=== PATIENT | female | born 1990 | race Caucasian/White ===

== ENCOUNTER 2021-05-25 15:18 | Emergency (ER) | payer OTHER ==
[~2021-05-25] VITALS: Ht 162.6 cm; Wt 106.9 kg
[~2021-05-25 15:18] MED LIST: ANUS2.5C2 PR; DOCU5LIQ PO; IBUP80TA PO; MAPA500T17 PO; MILK10SU PO
[2021-05-25] MEDS ORDERED: ONDA4TAB6 PO (20:07)
[2021-05-25 20:56] VITALS: BP 129/78
== END 2021-05-25 20:53 | disposition home or self-care (01) ==
LOC: M ED 15:18
DX: O99.519 Diseases of the respiratory system complicating pregnancy, unspecified trimester (principal); B34.8 Other viral infections of unspecified site; Z3A.10 10 weeks gestation of pregnancy

== ENCOUNTER → 2021-06-03 | Outpatient (CLI) | payer OTHER ==
[~2021-06-03] MED LIST changes: +ONDA4TAB6 PO
[2021-06-03 15:46] LABS: HEMATOCRIT 40.2 % (36.0-47.0); MEAN CORPUSCULAR HGB CONC 32.3 g/dl (32.0-36.5); MEAN CORPUSCULAR VOLUME 86.5 fl (80.0-96.0); PLATELET COUNT, AUTOMATED 309 10^3/uL (150-450); RED BLOOD COUNT 4.65 10^6/uL (4.00-5.40); WHITE BLOOD COUNT 13.8 10^3/uL (4.0-10.0)
[2021-06-03 17:06] LABS: GC DNA AMPLIFICATION NEGATIVE (NEGATIVE)
[2021-06-03 17:35] LABS: HEPATITIS C VIRUS ABY INDEX 0.1 INDEX (<0.8); HIV 1&2 SCREEN CENTAUR NEGATIVE (NEGATIVE)
== END ==
LOC: M PLALAB 12:10
PROVIDERS: ATTEND Advanced Practice Midwife
DX: Z34.91 Encounter for supervision of normal pregnancy, unspecified, first trimester (principal); Z3A.00 Weeks of gestation of pregnancy not specified

== ENCOUNTER → 2021-06-16 | Outpatient (REF) | payer OTHER | LOC: M SFHCWAGY 17:14 | PROVIDERS: ATTEND Advanced Practice Midwife | DX: Z34.92 Encounter for supervision of normal pregnancy, unspecified, second trimester (principal) ==

== ENCOUNTER → 2021-07-24 | Outpatient (CLI) | payer OTHER ==
--- NOTE | 2021-07-24 12:32 | REP ---
INDICATION: ANATOMY. COMPARISON: None TECHNIQUE: Transabdominal scanning FINDINGS: Multiple ultrasonographic images of the gravid uterus shows a single living intrauterine gestation in the transverse position. Doppler interrogation of the heart shows a heart rate of 160 beats per minute. The placenta is anterior and not low-lying. The cervix measures 5.4 cm in length and is closed. The subjective amniotic fluid volume is within normal limits. BPD: 4.2 cm 18 weeks 5 days HC: 16.0 cm 18 weeks 6 days AC: 12.9 cm 18 weeks 3 days FL: 2.8 cm 18 weeks 4 days The estimated weight is 246 g which is at the 36 percentile for an 18 week 5 day gestational age. anatomical structures seen to be unremarkable are as follows: Thalami, cavum septum pellucidum, cerebellum, cisterna magna, cerebral ventricles, kidneys, stomach, cord insertion, three-vessel umbilical cord, four-chamber heart, and upper lower extremities. Structures suboptimally visualized are as follows: upper lip, ventricular outflow tracts, and spine. Additionally, bilateral choroid plexus cysts were identified. IMPRESSION: Single living intrauterine gestation as described above with an estimated gestational age of 18 weeks 5 days via composite criteria and an estimated date of delivery of 12/20/2021 by today's exam. No anomalies were detected, however, a follow-up examination is recommended to better visualize those structures seen suboptimally today as described above and follow-up bilateral choroid plexus cysts. <Electronically signed by Monico Silverman > 07/24/21 [id number]
== END ==
LOC: MERGE 10:00 → M WHC 10:03
PROVIDERS: ATTEND Advanced Practice Midwife
DX: Z36.3 Encounter for antenatal screening for malformations (principal); Z3A.18 18 weeks gestation of pregnancy

== ENCOUNTER → 2021-09-09 | Outpatient (CLI) | payer OTHER ==
--- NOTE | 2021-09-09 13:40 | REP ---
INDICATION: F/U ANATOMY COMPARISON: 07/24/2021 TECHNIQUE: Transabdominal obstetrical ultrasound with color Doppler evaluation. FINDINGS: Examination demonstrates a single live intrauterine in transverse presentation. motion is identified by technologist. Placenta is noted anterior and grade 1 without evidence for placenta previa or abruption. Amniotic fluid volume is normal. Cervix measures 4.3 cm in length and appears closed.. Selected gestational age: 25 weeks 3 days with DESI 12/20/2021. Gestational age by current measurements 25 weeks 4 days with DESI 12/19/2021. FHR equals 143 beats per minute. BPD: 6.1 cm at 24 weeks 5 days HC: 23.5 cm at 25 weeks 4 days AC: 21.3 cm at 25 weeks 5 days FL: 4.7 cm at 25 weeks 4 days HL: 4.3 cm at 25 weeks 6 days HC/AC: 1.11 Estimated weight 830 grams (47thpercentile). Anatomical assessment demonstrates normal structures including cranium, choroid plexus, cavum, cerebellum/posterior fossa, facial features, lungs, diaphragm, stomach, cord insertion/three-vessel cord, kidneys/bladder, spine, and extremities. Continued limited evaluation of the heart and ventricular outflow tracts noted. IMPRESSION: Single live intrauterine in transverse lie demonstrating appropriate estimated weight and growth. Continued limited evaluation of the heart and ventricular outflow tracts. Remainder of the anatomical assessment is complete and normal. <Electronically signed by Doron Dickinson > 09/09/21 [id number]
== END ==
LOC: M WHC 10:36
PROVIDERS: ATTEND Advanced Practice Midwife
DX: O99.212 Obesity complicating pregnancy, second trimester (principal); Z3A.25 25 weeks gestation of pregnancy

== ENCOUNTER → 2021-09-19 | Outpatient (CLI) | payer OTHER | LOC: M PLALAB 11:39 | PROVIDERS: ATTEND Advanced Practice Midwife | DX: O99.212 Obesity complicating pregnancy, second trimester (principal) ==

== ENCOUNTER → 2021-09-30 | Outpatient (CLI) | payer OTHER ==
[2021-09-30 17:52] LABS: HEMATOCRIT 36.2 % (36.0-47.0); HEMOGLOBIN 11.6 g/dl (12.0-15.5); MEAN CORPUSCULAR HEMOGLOBIN 27.9 pg (27.0-33.0); PLATELET COUNT, AUTOMATED 286 10^3/uL (150-450); RED BLOOD COUNT 4.16 10^6/uL (4.00-5.40); WHITE BLOOD COUNT 16.6 10^3/uL (4.0-10.0)
== END ==
LOC: M PLALAB 13:36
PROVIDERS: ATTEND Advanced Practice Midwife
DX: O99.212 Obesity complicating pregnancy, second trimester (principal); E66.9 Obesity, unspecified; Z3A.00 Weeks of gestation of pregnancy not specified

== ENCOUNTER → 2021-10-06 | Outpatient (CLI) | payer OTHER ==
--- NOTE | 2021-10-07 14:22 | REP ---
INDICATION: F/U ANATOMY. COMPARISON: 09/09/2021. TECHNIQUE: Real-time sonographic evaluation of the gravid uterus performed. FINDINGS: Estimated gestational age is29 weeks 2 days, EDC 12/20/2021. Today's measurements indicate appropriate growth. Presentation: Cephalic Placenta anterior, grade 1, without evidence of placenta previa. heart rate is recorded at 153 beats per minute. Amniotic fluid is subjectively normal. JACOB 17.4, normal 9.1-23.2. SD ratio umbilical artery 2.84, normal 2.01-4.19. RI 0.65, normal 0.53-0.77. Closed cervical length is measured at 4.4 cm. Biometry chart: BPD: 74 mm, 29 weeks 5 days, 60th percentile. HC: 280 mm, 30 weeks 4 days, 70th percentile AC: 258 mm, 30 weeks 0 days, 63rd percentile Femur length: 58 mm, 30 weeks 2 days, 66th percentile HC to AC ratio: 1.08, normal range 0.98-1.17. Estimated weight: 1515g, 68th percentile. Left ventricular outflow tract is visualized and is grossly unremarkable. Four-chamber heart and right ventricular outflow tract are not visualized. IMPRESSION: Viable single intrauterine gestation as above. Four-chamber heart is still not well visualized. <Electronically signed by Karlos Alcantara > 10/07/21 [id number]
== END ==
LOC: M WHC 13:28
PROVIDERS: ATTEND Advanced Practice Midwife
DX: Z34.82 Encounter for supervision of other normal pregnancy, second trimester (principal)

== ENCOUNTER → 2021-10-30 | Outpatient (CLI) | payer OTHER ==
[~2021-10-30] MED LIST changes: +PRENTAB9 PO; +TUMS500C PO
== END ==
LOC: M WHC 13:37
PROVIDERS: ATTEND Advanced Practice Midwife
DX: O99.213 Obesity complicating pregnancy, third trimester (principal); Z3A.34 34 weeks gestation of pregnancy

== ENCOUNTER → 2021-12-03 | Outpatient (REF) | payer OTHER ==
[~2021-12-03] MED LIST changes: -PRENTAB9 PO; -TUMS500C PO
== END ==
LOC: M PLALAB 14:21
PROVIDERS: ATTEND Obstetrics & Gynecology
DX: Z36.89 Encounter for other specified antenatal screening (principal); Z3A.37 37 weeks gestation of pregnancy

== ENCOUNTER 2021-12-25 09:51 | Inpatient (IN) | payer OTHER ==
[~2021-12-25] VITALS: Ht 162.6 cm; Wt 117.0 kg
[2021-12-25] VITALS (13 sets, daily range): BP systolic 125–154; BP diastolic 63–103
[2021-12-25] MEDS ORDERED: TUMS500C PO ×2 (10:12)
[2021-12-25] MEDS ORDERED: PRENTAB9 PO (10:12)
[2021-12-25] MEDS ORDERED: HOME MED LIST COMPLETE! XX SCH (10:15)
[2021-12-25] MEDS ORDERED: LR 1,000 ML IV ONE (10:30)
[2021-12-25] MEDS ORDERED: PENICILLIN G POTASSIUM IV 5 MU in D5W MINI-BAG PLUS 100 ML IV STA (10:49)
[2021-12-25] MEDS ORDERED: LACTATED RINGER'S 1000 ML IV STA (10:49)
[2021-12-25] MEDS ORDERED: METHYLERGONOVINE MALEATE 0.2 MG/ML VIAL (J2210) IM PRN (10:50)
[2021-12-25] MEDS ORDERED: LR 1,000 ML IV SCH (10:50)
[2021-12-25] MEDS ORDERED: CARBOPROST TROMETHAMINE 250 MCG/ML AMP IM PRN (10:50)
[2021-12-25] MEDS ORDERED: LIDOCAINE 1% MDV 20ML VIAL INFIL PRN (10:50)
[2021-12-25] MEDS ORDERED: OXYTOCIN DRIP 30 UNITS in IV 1 EA IV PRN (10:50)
[2021-12-25] MEDS ORDERED: TRANEXAMIC ACID INJection 1,000 MG in NS 100 ML IV PRN (10:50)
[2021-12-25] MEDS: miSOPROStol 50MCG 1/2 TABLET SL SCH ×2 (11:35→15:42)
[2021-12-25 12:12] LABS: HEMATOCRIT 41.6 % (36.0-47.0); HEMOGLOBIN 13.4 g/dl (12.0-15.5); MEAN CORPUSCULAR HEMOGLOBIN 27.1 pg (27.0-33.0); MEAN CORPUSCULAR HGB CONC 32.2 g/dl (32.0-36.5); MEAN CORPUSCULAR VOLUME 84.2 fl (80.0-96.0); PLATELET COUNT, AUTOMATED 295 10^3/uL (150-450); RED BLOOD COUNT 4.94 10^6/uL (4.00-5.40); WHITE BLOOD COUNT 16.6 10^3/uL (4.0-10.0)
[2021-12-25] MEDS: LR 1,000 ML IV SCH ×2 (12:38→22:46)
[2021-12-25] MEDS: PENICILLIN G POTASSIUM IV 2.5 MU in IV 1 EA IV SCH ×3 (15:00→23:04)
[2021-12-25] MEDS ORDERED: OXYTOCIN DRIP 30 UNITS in IV 1 EA IV SCH (22:05)
[2021-12-26] VITALS (24 sets, daily range): BP systolic 110–154; BP diastolic 52–95
[2021-12-26] MEDS: LR 1,000 ML IV SCH (02:58)
[2021-12-26] MEDS ORDERED: PROMETHAZINE INJ 25 MG/ML VIAL (J2550) IV ONE (03:00)
[2021-12-26] MEDS ORDERED: BUTORPHANOL 2 MG/ML INJ (J0595) IV ONE (03:00)
[2021-12-26] MEDS: PENICILLIN G POTASSIUM IV 2.5 MU in IV 1 EA IV SCH (03:15)
[2021-12-26] MEDS ORDERED: DOCUSATE SODIUM 100MG CAPSULE PO PRN (05:35)
[2021-12-26] MEDS ORDERED: METHYLERGONOVINE MALEATE 0.2 MG TAB PO PRN (05:35)
[2021-12-26] MEDS ORDERED: RHOGAM 300 MCG (1500 IU) INJ (J2790) IM SCH (05:35)
[2021-12-26] MEDS ORDERED: MEASLES,MUMPS,RUBELLA VACCINE INJ (MMR-II) (90707) SC SCH (05:35)
[2021-12-26] MEDS ORDERED: DIBUCAINE 1% OINTMENT 30GM TOP PRN (05:35)
[2021-12-26] MEDS ORDERED: ACETAMINOPHEN 500 MG TAB PO PRN (05:35)
[2021-12-26] MEDS ORDERED: ACETAMINOPHEN TAB 650MG DOSE (2X325MG) PO PRN (05:35)
[2021-12-26] MEDS ORDERED: IBUPROFEN 800 MG TAB PO PRN (05:35)
[2021-12-26] MEDS ORDERED: IBUPROFEN 600MG TAB PO PRN (05:35)
[2021-12-26] MEDS: PRENATAL VITAMINS CHEWABLE TABLET PO SCH (09:21)
[2021-12-27 06:00] VITALS: BP 120/63
[2021-12-27] MEDS: PRENATAL VITAMINS CHEWABLE TABLET PO SCH (08:15)
[2021-12-27 18:02] VITALS: BP 131/69
[2021-12-27] MEDS ORDERED: IBUP80TA PO (21:17)
== END 2021-12-27 22:40 | disposition home or self-care (01) | DRG 560 ==
LOC: M LDI 09:51 → M OBS 12-26 07:07
PROVIDERS: ADMIT Obstetrics & Gynecology; ATTEND Obstetrics & Gynecology
PROC: 3E033VJ Introduction of Other Hormone into Peripheral Vein, Percutaneous Approach (ICD-10-PCS; 2021-12-25)
PROC: 10E0XZZ Delivery of Products of Conception, External Approach (ICD-10-PCS; principal; 2021-12-26)
PROC: 0KQM0ZZ Repair Perineum Muscle, Open Approach (ICD-10-PCS; 2021-12-26)
DX: O48.0 Post-term pregnancy (principal); Z68.44 Body mass index [BMI] 60.0-69.9, adult; E66.9 Obesity, unspecified; Z37.0 Single live birth; Z3A.40 40 weeks gestation of pregnancy; O99.824 Streptococcus B carrier state complicating childbirth; O99.214 Obesity complicating childbirth; O70.1 Second degree perineal laceration during delivery

== ENCOUNTER → 2023-05-17 | Outpatient (REF) | payer OTHER ==
[~2023-05-17] MED LIST changes: +PRENTAB9 PO; +TUMS500C PO
== END ==
LOC: M SFHCWAGY 16:55
PROVIDERS: ATTEND Advanced Practice Midwife
DX: Z12.4 Encounter for screening for malignant neoplasm of cervix (principal)

== ENCOUNTER → 2024-05-15 | Outpatient (REF) | payer OTHER ==
[~2024-05-15] MED LIST changes: +ESTA0.25; +ONDA-282 PO; -ONDA4TAB6 PO
[2024-05-17 21:42] LABS: HPV APTIMA Not Detected (Not Detected)
== END ==
LOC: M SFHCWAGY 16:59
PROVIDERS: ATTEND Advanced Practice Midwife
DX: Z12.4 Encounter for screening for malignant neoplasm of cervix (principal)

== ENCOUNTER 2025-02-24 10:06 | Emergency (ER) | payer OTHER ==
[~2025-02-24] VITALS: Ht 152.4 cm; Wt 115.2 kg
[2025-02-24] MEDS ORDERED: prednisone (10:17)
[2025-02-24] MEDS ORDERED: CETI-24 PO (10:17)
[2025-02-24] MEDS ORDERED: TRIA25CR TOP (13:25)
[2025-02-24 13:33] VITALS: BP 134/74; TEMP 97.6; O2SAT 96
== END 2025-02-24 13:34 | disposition home or self-care (01) ==
LOC: M ED 10:06
DX: L51.9 Erythema multiforme, unspecified (principal)